=== PATIENT | female | born 1970 | race Caucasian/White ===

== ENCOUNTER 2016-02-26 08:13 | Day surgery (SDC) | payer BC, OTHER ==
[2016-02-14 11:09] VITALS: BMI 30.1
--- NOTE | 2016-02-25 14:32 | HP ---
DATE OF ADMISSION: Gabby Norris is a 45-year-old patient seen with progressive right knee pain. After having treatment options discussed, she elected to proceed with right knee arthroscopy. Consent was obtained. PAST MEDICAL HISTORY: Migraine headaches. PAST SURGICAL HISTORY: Left breast biopsy, cholecystectomy, hand surgery, left knee arthroscopy. Daily medications: 1. Depakote. 2. Topamax. ALLERGIES: CODEINE. SOCIAL HISTORY: Patient denies tobacco use. Physical evaluation of right knee: Range of motion is -1 to 120 degrees, mild intra-articular effusion present. Tenderness medial joint line. Positive medial Juan David's. There is crepitus along the medial and patellofemoral compartments with range of motion. Ligaments are stable. Hip rotation is without pain. Distal neurovascular exam is intact. Radiographs of the right knee revealed mild osteoarthritic changes. MRI of the right knee revealed medial and lateral meniscal tears. IMPRESSION: Internal derangement of right knee with medial and lateral meniscal tear. PLAN: Right knee arthroscopy with partial meniscectomy and debridement.
[~2016-02-26 08:13] MED LIST: DEXAMETHASONE SOD PHOSPHATE 10 MG/ML 1 ML VIAL IV ONE; FAMOTIDINE 20 MG/2 ML VIAL IV PRN; HYDROmorphone 1 MG/ML 1 ML SYRINGE IVP PRN; LACTATED RINGERS 1,000 ML IV SCH; LIDOCAINE 1% 20 ML VIAL (10MG/ML) FOR IV START INTRADERMA PRN; MIDAZOLAM 2 MG/2 ML VIAL IV PRN; ceFAZolin 2 GM in SODIUM CHLORIDE 0.9% 100 ML IVPB ONE
[2016-02-26] MEDS: ONDANSETRON 4 MG/2 ML VIAL IVP ONE ×2 (08:57→12:10)
[2016-02-26] MEDS ORDERED: PROPOFOL 10 MG/ML 20 ML VIAL IV ONE (09:15)
[2016-02-26] MEDS ORDERED: SODIUM CHLORIDE 0.9% 100 ML BAG IV ONE (09:15)
[2016-02-26] MEDS ORDERED: fentaNYL (PF) 50 MCG/ML 2 ML AMP ONE (09:15)
[2016-02-26] MEDS ORDERED: LIDOCAINE 1% INJ 10MG/ML (20 ML MDV) ONE (09:15)
[2016-02-26] MEDS ORDERED: ceFAZolin 1,000 MG VIAL ONE (09:15)
[2016-02-26] MEDS ORDERED: MIDAZOLAM 2 MG/2 ML VIAL ONE (09:15)
[2016-02-26] MEDS ORDERED: BUPIVACAIN-EPI 0.25%-1:200,000 30 ML VIAL INTRAARTIC ONE ×2 (09:33→09:52)
[2016-02-26 10:12] VITALS: TEMP 96.8
--- NOTE | 2016-02-26 10:12 | P.OP ---
Date of Procedure: 02/26/16 Preoperative Diagnosis: Internal derangement right knee Postoperative Diagnosis: 1. Tear medial and lateral meniscus right knee 2. Grade 2/3 chondromalacia medial femoral condyle right knee 3. Reactive synovitis medial and suprapatellar compartments right knee Procedure(s) Performed: 1. Arthroscopic partial medial and lateral meniscectomy right knee 2. Arthroscopic chondroplasty medial femoral condyle right knee 3. Arthroscopic partial synovectomy medial and suprapatellar compartments right knee Anesthesia: GETA Surgeon: Jack Santacruz Estimated Blood Loss (ml): 50 Pathology: none sent Condition: stable Disposition: PACU Indications for Procedure: 45-year-old patient seen with progressive right knee pain. After and treatment options discussed, she elected to proceed with right knee arthroscopy. Consent regarding procedure was obtained. Description of Procedure: Patient was taken to the operative suite. Patient underwent a general anesthetic by the department of anesthesia. Patient was given preoperative antibiotics. The right lower extremity was placed in a well-padded arthroscopic leg roldan. The right leg was prepped and draped in the normal sterile orthopedic fashion. A lateral parapatellar and suprapatellar incision was made. Trochars were inserted. Arthroscopy was initiated. Suprapatellar pouch revealed diffuse thick synovitis. The patellofemoral joint appeared to articulate congruently with grade 1 chondromalacia changes. The scope was guided into the medial gutter. No loose bodies or plica identified The scope was then guided into the medial compartment. A medial parapatellar incision was made. Trocar inserted followed by probe. There was a tear of the posterior horn and midbody medial meniscus. There were grade 2/3 chondromalacia changes of the medial femoral condyle with some osteochondral tears present. There were grade 1 chondromalacia changes of the medial tibial plateau. There was some reactive synovitis anteriorly. There were no loose bodies. A partial medial meniscectomy was performed down to stable tissue. I performed a chondroplasty of the medial femoral condyle down to stable tissue as well as a partial synovectomy. The residual meniscus was probed and found to be stable. The residual osteochondral surface medial femoral condyle was stable. Scope and probe were then guided into the intercondylar notch. Cruciates were identified, probed and found to be stable. The scope and probe were then guided into lateral compartment. There was a radial tear involving the posterior horn as well as midbody lateral meniscus. Mild grade 1 chondromalacia changes were present with no osteochondral tears. No reactive synovitis or loose body. A partial lateral meniscectomy was performed on a stable tissue. The residual meniscus was probed and found to be stable. The probe was removed. The scope was in guided back into the suprapatellar compartment. I introduced a motorized shaver into the suprapatellar compartment. I debrided piecemeal fragments of meniscus I encountered. I performed a partial synovectomy. Shaver was removed. I took one more look around the entire knee, no residual debris. Instruments were now removed from the joint. The joint was infiltrated with .25% Marcaine. Steri-Strips were applied to the portal sites. Sterile dressings were applied. The patient was placed into a MARLEN hose. No tourniquet was utilized. The patient was awakened, transferred to a bed and taken to recovery stable satisfactory condition.
[2016-02-26] MEDS ORDERED: HYDROmorphone 1 MG/ML 1 ML SYRINGE IVP ONE ×4 (10:15→10:28)
[2016-02-26] MEDS ORDERED: LACTATED RINGERS 1,000 ML IV ONE (10:30)
[2016-02-26 11:18] VITALS: RESP 16
[2016-02-26 11:53] VITALS: PULSE 92
[2016-02-26 12:11] VITALS: BP 134/93
== END 2016-02-26 12:52 | disposition home or self-care (01) ==
LOC: OR 08:13
PROVIDERS: ATTEND Orthopaedic Surgery
DX: S83.281A Other tear of lateral meniscus, current injury, right knee, initial encounter (principal); S83.241A Other tear of medial meniscus, current injury, right knee, initial encounter; M65.9 Synovitis and tenosynovitis, unspecified; M94.261 Chondromalacia, right knee; X58.XXXA Exposure to other specified factors, initial encounter; G43.909 Migraine, unspecified, not intractable, without status migrainosus; Z88.5 Allergy status to narcotic agent; Z88.6 Allergy status to analgesic agent; Z79.899 Other long term (current) drug therapy; Z79.1 Long term (current) use of non-steroidal anti-inflammatories (NSAID)
CPT/HCPCS: 29880; 81025; J2250; J1100; J2405; J0690; J2001; J3010; J1170; J2704

== ENCOUNTER → 2016-07-15 | Outpatient (CLI) | payer OTHER ==
--- NOTE | 2016-07-15 14:08 | MR ---
MR brain without contrast HISTORY: Chronic headaches Multiplanar multisequence imaging through the brain No comparisons There is a mass present causing mass effect in the lingula slightly to the right of midline measuring approximately 16 x 13 x 11 mm showing increased signal on T2-weighted sequences, intermediate signal on T1-weighted images. There is no restricted diffusion present. There is no hemorrhage or hydrocephalus. There are normal v ascular flow voids. Corpus callosum, pituitary, cerebellopontine angles are within normal limits. The re are some scattered hyperintensities on inversion recovery and T2-weighted sequences within the kenn p white matter, approximately 2 or 3 punctate lesions which are nonspecific. Inflammatory changes pre sent within the mastoid air cells. 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 Recommend con trast enhanced brain MRI with special attention to the brainstem with brainstem protocol. Additional findings above. Report relayed to the office of to Alicia at 1410h at the time of inte rpretation
== END | disposition home or self-care (01) ==
LOC: RADMRIMAIN 08:33
PROVIDERS: ATTEND Family Medicine
DX: R51 Headache (principal); R22.0 Localized swelling, mass and lump, head
CPT/HCPCS: 70551

== ENCOUNTER → 2016-07-17 | Outpatient (CLI) | payer OTHER ==
--- NOTE | 2016-07-17 09:40 | MR ---
EXAMINATION TYPE: MR brain w con DATE OF EXAM: 07/17/2016 9:08 AM COMPARISON: NONE HISTORY: Other abnormal findings on diagnostic imagin CONTRAST: Standard multiplanar, multisequence MRI departmental protocol utilizing 15 mL intravenous MultiHance gadolinium contrast. FINDINGS: Persistent the deformity of the medulla without evidence of significant enhancement. Neopla sm in the differential diagnosis. Previous infarct is not excluded. Linear area of enhancement involving the right parietal white matter compatible tiny venous angioma. Ventricular system midline without displacement. Prominent fluid-filled structure posterior to the th ird ventricle measuring 1.5 cm likely represents small arachnoid cyst. 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 Vague enhancement in the right inferior temp oral lobe likely vascular. No suspicious enhancement. IMPRESSION: Area of concern involving the medulla demonstrates no significant enhancement. There does appear to b e persistent deformity of the anterior right margin of the medulla. Neoplasm including low-grade glio ma in the differential. Previous infarct not excluded.
== END | disposition home or self-care (01) ==
LOC: RADMRIMAIN 08:36
PROVIDERS: ATTEND Family Medicine
DX: R90.89 Other abnormal findings on diagnostic imaging of central nervous system (principal)
CPT/HCPCS: 70552; A9577

== ENCOUNTER → 2017-01-08 | Outpatient (CLI) | payer OTHER ==
--- NOTE | 2017-01-12 07:55 | MM ---
Reason for exam: screening (asymptomatic). Last mammogram was performed 1 year and 4 months ago. History: Benign left mammotome panel of the left breast, June 16, 2013. Benign excisional biopsy of the right breast, 1999. Physical Findings: A clinical breast exam by your physician is recommended on an annual basis and results should be correlated with mammographic findings. MG 3D Screening Mammo W/Cad Bilateral CC and MLO view(s) were taken. Prior study comparison: August 28, 2015, right breast MG 3d diag mammo w/cad RT. March 12, 2015, bilateral MG 3d diag mammo w/cad CAROLYN. There are scattered fibroglandular densities. Previous mammotome biopsy in the left breast. There is chronic nodularity in the right breast. Stable accessory tissue superior posterior right breast. ASSESSMENT: Benign, BI-RAD 2 RECOMMENDATION: Routine screening mammogram of both breasts in 1 year. Manage on a clinical basis with regard to right breast pain.
== END | disposition home or self-care (01) ==
LOC: RADMAMWWP 15:35
PROVIDERS: ATTEND Family Medicine
DX: Z12.31 Encounter for screening mammogram for malignant neoplasm of breast (principal)
CPT/HCPCS: 77063; G0202

== ENCOUNTER → 2017-04-26 | Outpatient (CLI) | payer OTHER ==
--- NOTE | 2017-04-26 14:11 | XR ---
EXAMINATION TYPE: XR lumbosacral spine min 4V DATE OF EXAM: 04/26/2017 CLINICAL HISTORY: Chronic low back pain TECHNIQUE: Frontal, lateral, and oblique images of the lumbar spine are obtained. COMPARISON: None FINDINGS: There are hypoplastic 12th ribs. There are 5 lumbar type vertebral bodies identified. Mild multilevel degenerative changes of the lumbar spine are seen as small anterior osteophytes at L1-L2 a nd L2-L3 and facet arthropathy at L4-L5 and L5-S1. The lumbar spine shows satisfactory alignment with out evidence of acute fracture or dislocation. Vertebral body heights and disk space heights are with in normal limits. The oblique images appear within normal limits with no radiographic neural forami nal narrowing. Cholecystectomy clips are seen within the right upper quadrant. IMPRESSION: 1. No acute fracture or dislocation is seen in the lumbar spine. 2. Mild degenerative disc disease of the lumbar spine with no radiographic evidence of neuroforaminal narrowing. MR of the lumbar spine could be performed if there is further evaluation for disc herniat ion, spinal canal stenosis or neural foraminal narrowing.
== END | disposition home or self-care (01) ==
LOC: RADXRMAIN 13:05
PROVIDERS: ATTEND Family Medicine
DX: M51.36 Other intervertebral disc degeneration, lumbar region (principal)
CPT/HCPCS: 72110

== ENCOUNTER → 2018-01-18 | Outpatient (CLI) | payer OTHER ==
--- NOTE | 2018-01-19 14:54 | MM ---
Reason for exam: screening (asymptomatic). Last mammogram was performed 1 year ago. History: Benign left mammotome panel of the left breast, June 16, 2013. Benign excisional biopsy of the right breast, 1999. Physical Findings: A clinical breast exam by your physician is recommended on an annual basis and results should be correlated with mammographic findings. MG Screening Mammo w CAD Bilateral CC and MLO view(s) were taken. Prior study comparison: January 08, 2017, bilateral MG 3d screening mammo w/cad. August 28, 2015, right breast MG 3d diag mammo w/cad RT. There are scattered fibroglandular densities. There is no discrete abnormality. No significant changes when compared with prior studies. ASSESSMENT: Negative, BI-RAD 1 RECOMMENDATION: Routine screening mammogram of both breasts in 1 year.
== END | disposition home or self-care (01) ==
LOC: RADMAMWWP 07:13
PROVIDERS: ATTEND Family Medicine
DX: Z12.31 Encounter for screening mammogram for malignant neoplasm of breast (principal)
CPT/HCPCS: 77067

== ENCOUNTER → 2019-02-20 | Outpatient (CLI) | payer OTHER ==
[2019-02-20 17:17] LABS: HCT 41.9 % (34.0-46.0); HGB 13.6 gm/dL (11.4-16.0); MCH 29.8 pg (25.0-35.0); MCHC 32.5 g/dL (31.0-37.0); MCV 91.7 fL (80.0-100.0); Mean Platelet Volume 8.5; Platelet Count 254 k/uL (150-450); RBC 4.56 m/uL (3.80-5.40); RDW 12.5 % (11.5-15.5); WBC 7.3 k/uL (3.8-10.6)
[2019-02-21 00:34] LABS: African American GFR (CKD) 117.1 (60.0-200.0); Anion Gap 13.1 mmol/L (4.00-12.00); Calcium 9.4 mg/dL (8.7-10.3); Carbon Dioxide 22.9 mmol/L (21.6-31.8); Potassium 4.1 mmol/L (3.5-5.5)
== END | disposition home or self-care (01) ==
LOC: LABWHC1 16:19
PROVIDERS: ATTEND Nuclear Medicine Nuclear Cardiology
DX: Z01.810 Encounter for preprocedural cardiovascular examination (principal); I25.10 Atherosclerotic heart disease of native coronary artery without angina pectoris; R07.89 Other chest pain
CPT/HCPCS: 36415; 80048; 85027

== ENCOUNTER → 2019-08-15 | Outpatient (CLI) | payer MEDICAID, OTHER ==
--- NOTE | 2019-08-17 09:38 | MM ---
Reason for exam: screening (asymptomatic). Last mammogram was performed 1 year and 7 months ago. History: Patient is postmenopausal. Benign left mammotome panel of the left breast, June 16, 2013. Benign excisional biopsy of the right breast, 1999. Took hormonal contraceptives for 1 year. Physical Findings: A clinical breast exam by your physician is recommended on an annual basis and results should be correlated with mammographic findings. MG 3D Screening Mammo W/Cad Bilateral CC and MLO view(s) were taken. Prior study comparison: January 18, 2018, bilateral MG screening mammo w CAD. January 08, 2017, bilateral MG 3d screening mammo w/cad. There are scattered fibroglandular densities. Previous mammotome biopsy in the left breast. There is chronic nodularity in the right breast. Global asymmetry right upper outer quadrant is unchanged. No significant changes when compared with prior studies. ASSESSMENT: Benign, BI-RAD 2 RECOMMENDATION: Routine screening mammogram of both breasts in 1 year.
== END | disposition home or self-care (01) ==
LOC: RADMAMWWP 11:34
PROVIDERS: ATTEND Obstetrics & Gynecology
DX: Z12.31 Encounter for screening mammogram for malignant neoplasm of breast (principal)
CPT/HCPCS: 77063; 77067

== ENCOUNTER 2020-08-10 22:28 | Inpatient (IN) | payer MEDICAID ==
[2020-08-10] MEDS ORDERED: ONDANSETRON 4 MG/2 ML VIAL IVP STA (23:11)
[2020-08-10] MEDS ORDERED: SODIUM CHLORIDE 0.9% 1,000 ML IV STA (23:11)
[2020-08-10] MEDS ORDERED: MORPHINE SULFATE 2 MG/ML SYRINGE IVP STA (23:11)
[2020-08-10 23:33] LABS: Basophils % (A) 0 %; Eosinophils # (A) 0.1 k/uL (0-0.7); Eosinophils % (A) 1 %; HCT 39.3 % (34.0-46.0); HGB 13.6 gm/dL (11.4-16.0); Lymphocytes # (A) 1.2 k/uL (1.0-4.8); Lymphocytes % (A) 11 %; MCHC 34.6 g/dL (31.0-37.0); MCV 86.7 fL (80.0-100.0); Mean Platelet Volume 7.6; Monocytes # (A) 0.4 k/uL (0-1.0); Monocytes % (A) 4 %; Neutrophils # (A) 8.9 k/uL (1.3-7.7); Neutrophils % (A) 83 %; Platelet Count 336 k/uL (150-450); RBC 4.53 m/uL (3.80-5.40); RDW 12.5 % (11.5-15.5); WBC 10.8 k/uL (3.8-10.6)
--- NOTE | 2020-08-11 00:03 | XR ---
EXAMINATION TYPE: XR chest 2V DATE OF EXAM: 08/10/2020 COMPARISON: NONE HISTORY: Chest pain TECHNIQUE: 2 views FINDINGS: Heart and mediastinum are normal. Lungs are clear. Diaphragm is normal. There are chest carlitos ds. Costophrenic angles are clear. IMPRESSION: Normal chest.
--- NOTE | 2020-08-11 00:25 | ED ---
General Adult HPI - General Chief complaint: Abdominal Pain Stated complaint: Heart palpitations, sent from Time Seen by Provider: 08/10/20 22:43 Source: patient Mode of arrival: ambulatory Limitations: no limitations - History of Present Illness Initial comments: 50 year-old male patient presents for evaluation of midepigastric abdominal pain and palpitations. Patient states symptoms have been present for the last week. States they are constant. She reports nausea and several episodes of vomiting throughout the day. States she is having pain in her mid upper back as well. Reports intermittent palpitations. Reports occasional shortness of breath. Denies personal cardiac history, but reports CAD in her mother. Has had cholecystectomy in the past. Patient denies any recent rash, fever, chills, cough, diarrhea, constipation, back pain, numbness, tingling, dizziness, weakness, hematuria, dysuria, urinary urgency, urinary frequency, headache, visual changes, or any other complaints. - Related Data Home Medications Medication Instructions Recorded Confirmed SUMAtriptan SUCCINATE [Imitrex] 100 mg PO DAILY PRN 07/05/15 02/26/16 Aspirin/Acetaminophen/Caffeine 1 each PO DAILY PRN 02/14/16 02/26/16 [Excedrin Migraine Caplet] Ibuprofen [Motrin] 800 mg PO Q6H PRN 02/14/16 02/26/16 Previous Rx's Medication Instructions Recorded Hydrocodone/Acetaminophen [Hulen 1 each PO Q6HR PRN #30 tab 02/26/16 5-325] Ibuprofen [Motrin] 800 mg PO Q6HR PRN #30 tab 02/26/16 Allergies Allergy/AdvReac Type Severity Reaction Status Date / Time codeine AdvReac Nausea & Verified 08/10/20 22:36 Vomiting tramadol AdvReac Nausea & Verified 08/10/20 22:36 Vomiting Review of Systems ROS Statement: Those systems with pertinent positive or pertinent negative responses have been documented in the HPI. ROS Other: All systems not noted in ROS Statement are negative. Past Medical History Past Medical History: Neurologic Disorder Additional Past Medical History / Comment(s): MIGRAINES History of Any Multi-Drug Resistant Organisms: None Reported Past Surgical History: Breast Surgery, Cholecystectomy, Orthopedic Surgery, Tubal Ligation Additional Past Surgical History / Comment(s): RT KNEE SCOPE. LT MIDDLE FINGER Sx. lumpectomy rt breast 1989 and from lt breast 2014-both benign Past Anesthesia/Blood Transfusion Reactions: No Reported Reaction Additional Past Anesthesia/Blood Transfusion Reaction / Comment(s): NO HX BLOOD TRANSFUSION, MOTHER HAD HX OF BLOOD TRANSFUSION Past Psychological History: No Psychological Hx Reported Smoking Status: Never smoker Past Alcohol Use History: None Reported Past Drug Use History: None Reported - Past Family History Father Family Medical History: COPD Mother Family Medical History: COPD, Diabetes Mellitus Additional Family Medical History / Comment(s): HEART SURG. General Exam Limitations: no limitations General appearance: alert, in no apparent distress, other (This is a well- developed, well-nourished adult female patient in no acute distress. Vital signs upon presentation are temperature 98.7F, pulse 97, respirations 18, blood pressure 143/97, pulse ox 99% on room air.) Eye exam: Present: normal appearance, PERRL, EOMI. Absent: scleral icterus, conjunctival injection, periorbital swelling ENT exam: Present: normal exam, normal oropharynx, mucous membranes moist Respiratory exam: Present: normal lung sounds bilaterally. Absent: respiratory distress, wheezes, rales, rhonchi, stridor Cardiovascular Exam: Present: regular rate, normal rhythm, normal heart sounds. Absent: systolic murmur, diastolic murmur, rubs, gallop, clicks GI/Abdominal exam: Present: soft, tenderness (Midepigastric), normal bowel sounds. Absent: distended, guarding, rebound, rigid Neurological exam: Present: alert, oriented X3, CN II-XII intact Psychiatric exam: Present: normal affect, normal mood Skin exam: Present: warm, dry, intact, normal color. Absent: rash Course Vital Signs 08/10/20 22:32 Temperature 98.7 F Pulse Rate 97 Respiratory 18 Rate Blood Pressure 143/97 O2 Sat by Pulse 99 Oximetry EKG Findings - EKG Comments: EKG Findings:: EKG obtained at 2304 shows normal sinus rhythm with a ventricular rate of 72, LA interval 138, QRS duration 74, QT 374, QTC 409. No evidence of ST elevation or depression. Medical Decision Making - Medical Decision Making 50-year-old female patient presents to the emergency department today for evaluation of chest pain and palpitations. Physical examination did reveal some midepigastric discomfort. Shows report vomiting, sweats, and palpitations with this. Labs reviewed and are unremarkable. Troponin negative. EKG showed sinus rhythm with no ST elevation or depression. Upon reevaluation patient still reports some discomfort. She'll be admitted to the hospital for serial troponins and further evaluation by cardiology. She is given aspirin. She is agreeable with this plan. My attending is Dr. Andrews. - Lab Data Result diagrams: 08/10/20 23:26 08/10/20 23:26 Lab Results 08/10/20 08/10/20 08/10/20 Range/Units 23:26 23:26 23:26 WBC 10.8 H (3.8-10.6) k/uL RBC 4.53 (3.80-5.40) m/uL Hgb 13.6 (11.4-16.0) gm/dL Hct 39.3 (34.0-46.0) % MCV 86.7 (80.0-100.0) fL MCH 30.0 (25.0-35.0) pg MCHC 34.6 (31.0-37.0) g/dL RDW 12.5 (11.5-15.5) % Plt Count 336 (150-450) k/uL MPV 7.6 Neutrophils % 83 % Lymphocytes % 11 % Monocytes % 4 % Eosinophils % 1 % Basophils % 0 % Neutrophils # 8.9 H (1.3-7.7) k/uL Lymphocytes # 1.2 (1.0-4.8) k/uL Monocytes # 0.4 (0-1.0) k/uL Eosinophils # 0.1 (0-0.7) k/uL Basophils # 0.0 (0-0.2) k/uL Sodium 142 (137-145) mmol/L Potassium 3.5 (3.5-5.1) mmol/L Chloride 100 (98-107) mmol/L Carbon Dioxide 30 (22-30) mmol/L Anion Gap 12 mmol/L BUN 13 (7-17) mg/dL Creatinine 0.64 (0.52-1.04) mg/dL Est GFR (CKD-EPI)AfAm >90 (>60 ml/min/1.73 sqM) Est GFR (CKD-EPI)NonAf >90 (>60 ml/min/1.73 sqM) Glucose 114 H (74-99) mg/dL Calcium 9.3 (8.4-10.2) mg/dL Total Bilirubin 0.3 (0.2-1.3) mg/dL AST 17 (14-36) U/L ALT 7 (4-34) U/L Alkaline Phosphatase 136 H (38-126) U/L Troponin I <0.012 (0.000-0.034) ng/mL Total Protein 7.2 (6.3-8.2) g/dL Albumin 4.4 (3.5-5.0) g/dL Lipase 74 (23-300) U/L - Radiology Data Radiology results: report reviewed, image reviewed 2 views of the chest are obtained. Report was reviewed in its entirety. Impression by Dr. Calloway shows ultrasound. Disposition Clinical Impression: Chest pain, Palpitations Disposition: ADMITTED IP TO THIS [facility] Condition: Serious Referrals: Phylicia Stewart MD [Primary Care Provider] - 1-2 days Decision to Admit Reason: Admit from EC Decision Date: 08/11/20 Decision Time: 01:44
[2020-08-11 01:21] LABS: ALT 7 U/L (4-34); AST 17 U/L (14-36); African American GFR (CKD) >90 (>60 ml/min/1.73 sqM); Albumin 4.4 g/dL (3.5-5.0); Alkaline Phosphatase 136 U/L (38-126); Anion Gap 12 mmol/L; Blood Urea Nitrogen 13 mg/dL (7-17); Calcium 9.3 mg/dL (8.4-10.2); Carbon Dioxide 30 mmol/L (22-30); Chloride 100 mmol/L (98-107); Glucose 114 mg/dL (74-99); Lipase 74 U/L (23-300); Non-African American GFR(CKD) >90 (>60 ml/min/1.73 sqM); Potassium 3.5 mmol/L (3.5-5.1); Sodium 142 mmol/L (137-145); Total Bilirubin 0.3 mg/dL (0.2-1.3); Total Protein 7.2 g/dL (6.3-8.2)
[2020-08-11] MEDS ORDERED: NALOXONE 0.4 MG/ML 1 ML VIAL IV PRN (01:41)
[2020-08-11] MEDS ORDERED: ONDANSETRON 4 MG/2 ML VIAL IVP PRN (01:41)
[2020-08-11] MEDS ORDERED: ASPIRIN 81 MG PO STA (01:43)
[2020-08-11] MEDS ORDERED: MORPHINE SULFATE 4 MG/ML SYRINGE IVP PRN (01:43)
[2020-08-11] MEDS: ASPIRIN 325 MG TAB PO SCH ×2 (02:10→23:40)
[2020-08-11 02:39] LABS: Appearance,Urine Cloudy (Clear); Bilirubin,Urine Negative (Negative); Blood,Urine Negative (Negative); Color,Urine Yellow; Glucose,Urine (UA) Negative (Negative); Ketones,Urine 2+ (Negative); Leukocyte Esterase,Urine Negative (Negative); Mucus,Urine Rare /hpf; Nitrite,Urine Negative (Negative); Protein,Urine Trace (Negative); RBC,Urine 5 /hpf (0-5); Specific Gravity,Urine 1.019 (1.001-1.035); Squamous Epithelial Cell,Urine 2 /hpf (0-4); Urobilinogen,Urine <2.0 mg/dL (<2.0); WBC,Urine 1 /hpf (0-5)
[2020-08-11] MEDS ORDERED: POTASSIUM CHLORIDE ER 20 MEQ TAB.ER PO STA (09:32)
[2020-08-11] MEDS: ASPIRIN 81 MG PO SCH (10:02)
[2020-08-11] MEDS: ASPIRIN-ACET-CAFF 250-250-65MG 1 EACH TAB PO PRN (11:22)
--- NOTE | 2020-08-11 12:41 | P.CRDCN ---
History of Present Illness Consult date: 08/11/20 History of present illness: HISTORY OF PRESENT ILLNESS: This is a 50-year-old female with a past medical history significant for hypertension and migraines. Patient does not follow with a botany laboratory assistant. We have been asked to see the patient in consultation for chest pain. Patient examined at the bedside. Patient states over the last 3 days she has been nauseous and has had multiple episodes of vomiting. She reports a burning sensation in her chest but states she has not had any significant chest pain. She reports feeling patients. She reports feeling diaphoretic but has not had a fever at home. She denies feeling short of breath. She denies feeling dizzy or lightheaded. Patient states she used to see a botany laboratory assistant a few years ago in [place] but does not remember his name. She states she had a stress test performed at that time which was normal. She reports her mom has a history of a pacemaker insertion. Her dad had a heart attack but she is unsure of what age. At the time of examination the patient does not feel her heart racing. She denies shortness of breath. She denies any chest pain or pressure. EKG reveals sinus mechanism with nonspecific ST-T wave changes Chest xray negative for acute process Laboratory data: WBC 10.8. Hemoglobin 13.6. Platelet count 336. Sodium 142. Potassium 3.5. BUN 13. Creatinine 0.64. Troponin negative 3. Current home cardiac medications include propanolol 60 mg daily REVIEW OF SYSTEMS: At the time of my exam: CONSTITUTIONAL: Denies fever or chills. HEENT: Denies blurred vision, vision changes, or eye pain. Denies hemoptysis CARDIOVASCULAR: Denies chest pain. Denies orthopnea. Denies PND. Denies palpitations RESPIRATORY: Denies shortness of breath. GASTROINTESTINAL: Denies abdominal pain. Denies nausea or vomiting. HEMATOLOGIC: Denies bleeding disorders. GENITOURINARY: Denies any blood in urine. SKIN: Denies pruitis. Denies rash. PHYSICAL EXAM: VITAL SIGNS: Reviewed. GENERAL: Well-developed in no acute distress. HEENT: Head is normocephalic. Pupils are equal, round. Sclerae anicteric. Mucous membranes of the mouth are moist. Neck supple. No JVD or thyromegaly LUNGS: Respirations even and unlabored. Lungs essentially clear to auscultation bilaterally. HEART: Regular rate and rhythm. S1 and S2 heard. ABDOMEN: Soft. Nondistended. Nontender. EXTREMITIES: Normal range of motion. No clubbing or cyanosis. Peripheral pulses intact. No lower extremity edema NEUROLOGIC: Awake and alert. Oriented x 3. ASSESSMENT: Nausea and vomiting 3 days Chest pain, atypical Palpitations History of hypertension History of migraines Hypokalemia PLAN: An acute coronary event has been ruled out Obtain 2-D echo to assess cardiac structure and function Resume home dose of propanolol Continue aspirin 81 mg daily Obtain lipid panel Replace potassium Continue telemetry monitoring to assess for any arrhythmias Patient to undergo stress echocardiogram tomorrow to assess for reversible ischemia Further recommendations for inpatient course Nurse practitioner note has been reviewed by physician. Signing provider agrees with the documented findings, assessment, and plan of care. Past Medical History Past Medical History: Neurologic Disorder Additional Past Medical History / Comment(s): MIGRAINES History of Any Multi-Drug Resistant Organisms: None Reported Past Surgical History: Breast Surgery, Cholecystectomy, Orthopedic Surgery, Tubal Ligation Additional Past Surgical History / Comment(s): RT KNEE SCOPE. LT MIDDLE FINGER Sx. lumpectomy rt breast 1989 and from lt breast 2013-both benign Past Anesthesia/Blood Transfusion Reactions: No Reported Reaction Additional Past Anesthesia/Blood Transfusion Reaction / Comment(s): NO HX BLOOD TRANSFUSION, MOTHER HAD HX OF BLOOD TRANSFUSION Past Psychological History: No Psychological Hx Reported Smoking Status: Never smoker Past Alcohol Use History: None Reported Past Drug Use History: None Reported - Past Family History Father Family Medical History: COPD Mother Family Medical History: COPD, Diabetes Mellitus Additional Family Medical History / Comment(s): HEART SURG. Medications and Allergies Home Medications Medication Instructions Recorded Confirmed Type Aspirin/Acetaminophen/Caffeine 2 tab PO TID PRN 02/14/16 08/11/20 History [Excedrin Migraine Caplet] Butalb/APAP/Caff 50-325-40Mg 1 tab PO BID PRN 08/11/20 08/11/20 History [Fioricet 50-325-40] Ergocalciferol (Vitamin D2) 1,250 mcg PO MO 08/11/20 08/11/20 History [Drisdol (50,000 Iu)] Propranolol HCl [Propranolol HCl 60 mg PO DAILY 08/11/20 08/11/20 History ER] Allergies Allergy/AdvReac Type Severity Reaction Status Date / Time codeine AdvReac Nausea & Verified 08/11/20 08:56 Vomiting tramadol AdvReac Nausea & Verified 08/11/20 08:56 Vomiting Physical Exam Vitals: Vital Signs Temp Pulse Pulse Resp BP BP Pulse Ox 08/11/20 08:00 79 18 08/11/20 07:00 98.5 F 79 18 106/70 97 08/11/20 05:03 98.5 F 71 18 126/77 95 08/11/20 02:04 85 16 146/93 100 08/10/20 22:32 98.7 F 97 18 143/97 99 Intake and Output 08/10/20 08/11/20 08/11/20 22:59 06:59 14:59 Other: Voiding Method Toilet # Voids 0 Weight 72.575 kg 72.575 kg Results 08/10/20 23:26 08/10/20 23:26 Cardiac Enzymes 08/10/20 08/10/20 08/11/20 Range/Units 23:26 23:26 03:42 AST 17 (14-36) U/L Troponin I <0.012 <0.012 (0.000-0.034) ng/mL 08/11/20 Range/Units 06:37 AST (14-36) U/L Troponin I <0.012 (0.000-0.034) ng/mL CBC 08/10/20 Range/Units 23:26 WBC 10.8 H (3.8-10.6) k/uL RBC 4.53 (3.80-5.40) m/uL Hgb 13.6 (11.4-16.0) gm/dL Hct 39.3 (34.0-46.0) % Plt Count 336 (150-450) k/uL Comprehensive Metabolic Panel 08/10/20 Range/Units 23:26 Sodium 142 (137-145) mmol/L Potassium 3.5 (3.5-5.1) mmol/L Chloride 100 (98-107) mmol/L Carbon Dioxide 30 (22-30) mmol/L BUN 13 (7-17) mg/dL Creatinine 0.64 (0.52-1.04) mg/dL Glucose 114 H (74-99) mg/dL Calcium 9.3 (8.4-10.2) mg/dL AST 17 (14-36) U/L ALT 7 (4-34) U/L Alkaline Phosphatase 136 H (38-126) U/L Total Protein 7.2 (6.3-8.2) g/dL Albumin 4.4 (3.5-5.0) g/dL Current Medications Generic Name Dose Route Start Last Admin Trade Name Freq PRN Reason Stop Dose Admin Acetaminophen/Aspirin/Caffeine 2 each 08/11/20 10:42 08/11/20 11:22 [id number] 1 Each Tab PO 2 each TID PRN Administration Migraine Headache Acetaminophen/Butalbital/Caffeine 1 each 08/11/20 10:42 Butalb/Apap/Caff 50-325-40mg Tab PO BID PRN Migraine Headache Aspirin 81 mg 08/11/20 09:00 08/11/20 10:02 Aspirin 81 Mg PO 81 mg DAILY COLBY Administration Ergocalciferol 1,250 mcg 08/12/20 09:00 Ergocalciferol 1,250 Mcg (50,000 Iu) Capsule PO MO COLBY Morphine Sulfate 4 mg 08/11/20 01:43 Morphine Sulfate 4 Mg/Ml Syringe IVP Q4HR PRN Pain Naloxone HCl 0.2 mg 08/11/20 01:41 Naloxone 0.4 Mg/Ml 1 Ml Vial IV Q2M PRN Opioid Reversal Ondansetron HCl 4 mg 08/11/20 01:41 Ondansetron 4 Mg/2 Ml Vial IVP Q8HR PRN Nausea And Vomiting Propranolol HCl 60 mg 08/12/20 09:00 Propranolol La 60 Mg Cap.Sa.24h PO DAILY COLBY Intake and Output 08/10/20 08/11/20 08/11/20 22:59 06:59 14:59 Other: Voiding Method Toilet # Voids 0 Weight 72.575 kg 72.575 kg 08/10/20 23:26 08/10/20 23:26
[2020-08-11] MEDS ORDERED: TEMAZEPAM 15 MG CAP PO PRN (14:36)
[2020-08-11] MEDS ORDERED: ALPRAZolam 0.25 MG TAB PO PRN (14:36)
--- NOTE | 2020-08-11 15:20 | HP ---
HISTORY AND PHYSICAL DATE OF SERVICE: 08/11/2020 CHIEF COMPLAINTS: Heart palpitations, chest pain, nausea, vomiting. HISTORY OF PRESENT ILLNESS: This is a 50-year-old woman with a past medical history of multiple medical issues including history of migraines, history of breast surgery, cholecystectomy, history of DJD, history of left knee scope, being followed by Dr. Phylicia Stewart in the outpatient setting. She apparently had a cloth hand previously. Patient also had a heart attack. The patient also had previously. The patient is complaining of on and off chest pains in the anterior part of the chest, sharp and heavy in character. The patient also has epigastric pain. Patient also had some acid reflux also according to her. There is no history of fever, rigors, chills. No headache, loss of consciousness, seizures. PAST MEDICAL HISTORY: Of cholecystectomy, history of DJD, tubal ligation, migraine, history of lumpectomy, breast. MEDICATIONS: Prior to admission include propranolol, vitamin D2, Fioricet, Excedrin. ALLERGIES: CODEINE AND TRAMADOL FAMILY HISTORY: History of COPD, diabetes mellitus, heart surgery. SOCIAL HISTORY: No history of smoking. No alcohol intake. REVIEW OF SYSTEMS: ENT: No diminished vision or hearing. CARDIOVASCULAR: As mentioned earlier. RESPIRATORY: As mentioned earlier. GI: As mentioned earlier. : No dysuria. NERVOUS SYSTEM: No numbness or weakness. ALLERGY/IMMUNOLOGY: No asthma or hayfever. MUSCULOSKELETAL: As mentioned earlier. HEMATOLOGY: No history of anemia. ENDOCRINE: No history of diabetes or hypothyroidism. CONSTITUTIONAL: As mentioned earlier. DERMATOLOGY: Negative. RHEUMATOLOGY: Negative. PSYCHIATRY: As mentioned earlier. PHYSICAL EXAMINATION: GENERAL: Patient is alert and oriented times three. VITAL SIGNS: Pulse 90, blood pressure 110/60, respirations 18, temperature 98.5, pulse ox 93% on room air. HEENT: Conjunctivae normal. NECK: No jugular venous distention. No carotid bruits. No lymph node enlargement. RESPIRATORY: Breath sounds diminished at the bases. No rhonchi, no crackles. HEART: S1 and S2, muffled. ABDOMEN: Soft, mild diffuse discomfort in the epigastrium. No tenderness. No masses palpable. No ascites. No hepatosplenomegaly. EXTREMITIES: No edema, no swelling. NERVOUS: Higher functions as mentioned earlier. Moves all four limbs. No focal motor or sensory deficits. LYMPHATICS: No lymph nodes palpable in the neck or axillae. SKIN: No rashes. JOINTS: No active deforming arthropathy. LABS: WBC 10.8, hemoglobin 13.6 sodium 142, potassium 3.5. ASSESSMENT: 1. Chest pain possible unstable angina. Myocardial infarction ruled out. 2. Possible gastroesophageal reflux disease. 3. History of nausea, vomiting, possible acute gastritis. 4. Increased WBC. 5. History of migraines. 6. History of cholecystectomy. 7. History of degenerative joint disease and left knee scope. 8. FULL CODE. RECOMMENDATIONS AND DISCUSSION: This is a 50-year-old woman who presented with multiple complex medical issues, we will monitor the patient closely. I would continue with symptomatic treatment for gastroesophageal reflux disease. Rule out myocardial infarction. Cardiology consultation and possible stress test. Monitor closely. Prognosis guarded because of multiple complex medical issues. Further recommendations to follow. MMODL / IJN: [id number] / MTDD
[2020-08-11] MEDS: PANTOPRAZOLE 40 MG/10 ML VIAL IVP SCH ×2 (15:57→21:10)
[2020-08-11 17:02] LABS: Chol/HDL Ratio 2.88; LDL Cholesterol,Calculated 60.8 mg/dL (0.0-131.0); VLDL Calculation 20.2 mg/dL (5.00-40.00)
[2020-08-11] MEDS: BUTALB/APAP/CAFF 50-325-40MG TAB PO PRN (21:10)
[2020-08-12] MEDS: ASPIRIN-ACET-CAFF 250-250-65MG 1 EACH TAB PO PRN (03:23)
[2020-08-12] MEDS: ASPIRIN 81 MG PO SCH (07:19)
[2020-08-12] MEDS: BUTALB/APAP/CAFF 50-325-40MG TAB PO PRN (07:19)
[2020-08-12] MEDS: PANTOPRAZOLE 40 MG/10 ML VIAL IVP SCH ×2 (07:21→19:43)
[2020-08-12] MEDS ORDERED: PROPRANOLOL LA 60 MG CAP.SA.24H PO SCH (09:00)
[2020-08-12] MEDS ORDERED: ERGOCALCIFEROL 1,250 MCG (50,000 IU) CAPSULE PO SCH (09:00)
[2020-08-12] MEDS ORDERED: SODIUM CHLORIDE 0.9% 500 ML 500 ML IV ONE (09:15)
[2020-08-12] MEDS ORDERED: AMINOPHYLLINE 500 MG/20 ML VIAL IV PRN (09:19)
[2020-08-12] MEDS ORDERED: REGADENOSON 0.4 MG/5 ML SYRINGE IV PRN (09:19)
[2020-08-12] MEDS ORDERED: CAFFEINE CITRATE 60 MG/3 ML VIAL IV PRN (09:19)
[2020-08-12 09:21] LABS: Basophils # (A) 0.05 X 10*3/uL (0.00-0.10); Basophils % (A) 0.6 %; Eosinophils # (A) 0.08 X 10*3/uL (0.04-0.35); HCT 33.8 % (37.2-46.3); HGB 11.1 g/dL (12.0-15.0); Lymphocytes # (A) 2.12 X 10*3/uL (0.90-5.00); Lymphocytes % (A) 26.2 %; MCH 29.8 pg (27.0-32.0); MCHC 32.8 g/dL (32.0-37.0); MCV 90.9 fL (80.0-97.0); Mean Platelet Volume 10.8 fL (9.5-12.2); Monocytes # (A) 0.54 X 10*3/uL (0.20-1.00); Monocytes % (A) 6.7 %; Neutrophils # (A) 5.27 X 10*3/uL (1.80-7.70); Neutrophils % (A) 65.3 %; Platelet Count 314 X 10*3/uL (140-440); RBC 3.72 X 10*6/uL (4.10-5.20); RDW 12.8 % (11.5-14.5); WBC 8.08 X 10*3/uL (4.50-10.00)
[2020-08-12 09:34] LABS: Anion Gap 7.7 mmol/L (4.00-12.00); Calcium 8.4 mg/dL (8.7-10.3); Carbon Dioxide 25.3 mmol/L (21.6-31.8); Non-African American GFR(CKD) 111.3 (60.0-200.0); Potassium 4.2 mmol/L (3.5-5.5)
[2020-08-12] MEDS: KETOROLAC 15 MG/ML 1 ML VIAL IVP SCH ×2 (09:51→17:39)
[2020-08-12] MEDS: SODIUM CHLORIDE 0.9% 1,000 ML IV SCH ×2 (09:54→15:18)
--- NOTE | 2020-08-12 10:58 | P.PN ---
Subjective Progress Note Date: 08/12/20 HISTORY OF PRESENT ILLNESS: This is a 50-year-old female with a past medical history significant for hypertension and migraines. Patient does not follow with a chair upholsterer. We have been asked to see the patient in consultation for chest pain. Patient examined at the bedside. Patient states over the last 3 days she has been nauseous and has had multiple episodes of vomiting. She reports a burning sensation in her chest but states she has not had any significant chest pain. She reports feeling patients. She reports feeling diaphoretic but has not had a fever at home. She denies feeling short of breath. She denies feeling dizzy or lightheaded. Patient states she used to see a chair upholsterer a few years ago in [place] but does not remember his name. She states she had a stress test performed at that time which was normal. She reports her mom has a history of a pacemaker insertion. Her dad had a heart attack but she is unsure of what age. At the time of examination the patient does not feel her heart racing. She denies shortness of breath. She denies any chest pain or pressure. EKG reveals sinus mechanism with nonspecific ST-T wave changes Chest xray negative for acute process Laboratory data: WBC 10.8. Hemoglobin 13.6. Platelet count 336. Sodium 142. Potassium 3.5. BUN 13. Creatinine 0.64. Troponin negative 3. Current home cardiac medications include propanolol 60 mg daily 08/12/2020 Patient examined this morning at the bedside. Patient reports a bad migraine this morning. She is tachycardic with ambulation into the 140-150s. She had an episode overnight where she became tachycardic for a brief period of time. Nursing reports that patient was also complaining of a bad migraine at that time. She denies chest pain or pressure. She denies shortness of breath. Denies further nausea or vomiting. She reports feeling dizzy and lightheaded this morning which she had not complained of yesterday. PHYSICAL EXAM: VITAL SIGNS: Reviewed. GENERAL: Well-developed in no acute distress. HEENT: Head is normocephalic. Pupils are equal, round. Sclerae anicteric. Mucous membranes of the mouth are moist. Neck supple. No JVD or thyromegaly LUNGS: Respirations even and unlabored. Lungs essentially clear to auscultation bilaterally. HEART: Regular rate and rhythm. S1 and S2 heard. ABDOMEN: Soft. Nondistended. Nontender. EXTREMITIES: Normal range of motion. No clubbing or cyanosis. Peripheral pulses intact. No lower extremity edema NEUROLOGIC: Awake and alert. Oriented x 3. ASSESSMENT: Nausea and vomiting 3 days Chest pain, atypical Palpitations History of hypertension History of migraines Hypokalemia Tachycardia PLAN: 2-D echo has been ordered. Await results Patient originally scheduled for stress echocardiogram today. Will change stress test to Lexiscan secondary to tachycardia with minimal ambulation Check d-dimer Check TSH Check orthostatic blood pressures 500 mL bolus and then continue maintenance fluids at 125 mL an hour Further recommendations for inpatient course Nurse practitioner note has been reviewed by physician. Signing provider agrees with the documented findings, assessment, and plan of care. Objective - Vital Signs Vital signs: Vital Signs Temp 98.4 F 08/12/20 06:59 Pulse 96 08/12/20 09:20 Resp 16 08/12/20 08:45 BP 139/90 08/12/20 09:20 Pulse Ox 99 08/12/20 09:13 Intake & Output 08/11/20 08/12/20 08/12/20 18:59 06:59 18:59 Other: Voiding Method Toilet Toilet Toilet # Voids 3 1 - Labs CBC & Chem 7: 08/12/20 04:40 08/12/20 04:40 Labs: Abnormal Lab Results - Last 24 Hours (Table) 08/12/20 08/12/20 Range/Units 04:40 04:40 RBC 3.72 L (4.10-5.20) X 10*6/uL Hgb 11.1 L (12.0-15.0) g/dL Hct 33.8 L (37.2-46.3) % BUN 34.0 H (9.0-27.0) mg/dL Creatinine 0.5 L (0.6-1.5) mg/dL BUN/Creatinine Ratio 68.00 H (12.00-20.00) Ratio Calcium 8.4 L (8.7-10.3) mg/dL
--- NOTE | 2020-08-12 12:06 | P.STRESS ---
- Stress Test Note Stress Test Results/Findings: Exam Performed: NM stress lexiscan cardiolite Exam Date: 08/12/20 Reason for Exam: CHEST PAIN, PALPITATIONS Height: 5 ft 3 in Weight: 72.57 kg Protocol: LEXISCAN Stage: NA Duration of Exercise: 5 MINUTES Resting Heart Rate: 90 Resting Blood Pressure: 97/87 Maximum Achieved Heart Rate: 119 Maximum Achieved Blood Pressure: 120/83 85% PMHR: 143 100% PMHR: 168 METS: NA Technologist Comment: Stress Test Results/Findings: At baseline EKG showed Normal sinus rhythm, normal axis, T-wave inversion in lead 3, no significant ST or T-wave abnormalities. Patient recieved IV infusion of Lexiscan 0.4mg and at peak infusion EKG showed no significant change from baseline. Conclusions: 1. Normal EKG response to Lexiscan infusion 2. Nuclear imaging to be reported separately.
--- NOTE | 2020-08-12 13:36 | NM ---
EXAMINATION TYPE: NM stress lexiscan cardiolite DATE OF EXAM: 08/12/2020 COMPARISON: NONE HISTORY: 50-year-old female chest pain and palpitations TECHNIQUE: After the intravenous administration of 10.2 mCi Tc 99m Sestamibi - Cardiolite resting SP ECT images acquired 60 minutes post injection. The patient received 0.4mg Lexiscan, 25.2 mCi Tc 99m Sestamibi - Stress images obtained [address] injection FINDINGS: Review of stress and rest SPECT images demonstrates some apparent reversibility along the mid to apic al anteroseptal wall that is not corroborated on Polar maps. Gated analysis shows estimated left vent ricular ejection fraction of 66 %. TID is increased at 1.30. IMPRESSION: Reversibility along the mid to apical anteroseptal wall is suspicious but not corroborated on the pineda ar maps. However, in addition, TID is increased and can be seen in the setting of multivessel, balanc ed inducible ischemia. Further evaluation recommended.
--- NOTE | 2020-08-12 14:02 | CT ---
EXAMINATION TYPE: CT chest angio for PE DATE OF EXAM: 08/12/2020 COMPARISON: Radiograph 08/10/2020 HISTORY: 50-year-old female Chest pain TECHNIQUE: Contiguous axial scanning of the chest performed with IV Contrast, patient injected with 5 2 mL of Isovue 370. Coronal/sagittal MIP reconstructions performed. CT DLP: 201.7 mGycm Automated exposure control for dose reduction was used. FINDINGS: Heart normal size without pericardial effusion. No flattening of the interventricular septum reflux o f contrast into the hepatic veins. Aorta normal caliber with conventional arch vessel branching anatomy. No thoracic lymphadenopathy by CT size criteria. Satisfactory opacification of the pulmonary arterial system. No evidence for pulmonary embolus. Mild diffuse bronchial wall thickening. No consolidation or pleural effusion. Cholecystectomy clips in the visualized upper abdomen. Questionable 1.7 cm nodularity superior to the left adrenal gland, axial image 118. This can be furth er evaluated with a follow-up contrast enhanced CT of the abdomen. Bones: No osseous destructive process. IMPRESSION: 1. MILD DIFFUSE BRONCHIAL WALL THICKENING CAN BE SEEN WITH BRONCHITIS OR CHRONIC ASTHMA. 2. NO EVIDENCE FOR PULMONARY EMBOLUS. 3. QUESTIONABLE 1.7 CM NODULE LOCATED ABOVE THE LEFT ADRENAL GLAND IN THE UPPER ABDOMEN. RECOMMEND FO LLOW-UP CT OF THE ABDOMEN AND PELVIS UTILIZING BOTH IV AND ORAL CONTRAST TO FURTHER EVALUATE.
[2020-08-12] MEDS ORDERED: ALPRAZolam 0.25 MG TAB PO PRN (14:40)
[2020-08-12] MEDS ORDERED: NITROGLYCERIN SL TABS 0.4 MG TAB SUBLINGUAL PRN (14:40)
[2020-08-12] MEDS ORDERED: ALPRAZolam 0.5 MG TAB PO PRN (14:40)
[2020-08-12] MEDS: PROPRANOLOL LA 80 MG CAP.SA.24H PO SCH (15:19)
--- NOTE | 2020-08-12 16:12 | PN ---
PROGRESS NOTE DATE OF SERVICE: 08/12/2025 INTERVAL HISTORY: This 50-year-old woman who was admitted with palpitations, chest pain, nausea, vomiting, multiple symptomatology is being closely monitored at this time. The stress test was borderline positive. The patient also has some diarrhea. The patient also had some tachycardia and Cardiology evaluate the patient. CTA of the chest was negative for pulmonary embolism. Nodules were noted. Otherwise cardiology is planning cardiac cath tomorrow. COVID-19 is negative. PAST MEDICAL HISTORY: Reviewed. REVIEW OF SYSTEMS: CARDIOVASCULAR: As mentioned earlier. RESPIRATORY: As mentioned earlier. GI: As mentioned earlier. : No dysuria. NERVOUS SYSTEM: No numbness or weakness. CURRENT MEDICATIONS: Excedrin, Fioricet, Xanax, aspirin, Lipitor. Doses and medications reviewed. PHYSICAL EXAMINATION: GENERAL: Patient is alert and oriented times three. VITAL SIGNS: Pulse 122, blood pressure 101/93, respirations 16, temperature 98.1, pulse ox 100% on room air. HEENT: Conjunctivae normal. Oral mucosa moist. NECK: No jugular venous distention. No carotid bruits. RESPIRATORY: Breath sounds diminished at the bases. A few scattered rhonchi. HEART: S1 and S2, muffled. Tachycardia. ABDOMEN: Soft, no tenderness. No masses palpable. EXTREMITIES: No edema, no swelling. NERVOUS: No focal deficits. LABORATORY DATA: WBC 8.2, hemoglobin 11.1. TSH is 0.77. ASSESSMENT: 1. Chest pain possible unstable angina. Myocardial infarction ruled out. 2. Abnormal stress test, for cardiac cath. 3. Sinus tachycardia, rule out cardiac arrhythmia. 4. Possible gastroesophageal reflux disease. 5. Possible acute gastroenteritis. 6. Rule out lower GI bleed. 7. Increased WBC. 8. History of migraine. 9. History of cholecystectomy. 10.History of degenerative joint disease and left knee scope. 11.FULL CODE. RECOMMENDATION AND DISCUSSION: In this 50-year-old woman who presented with multiple complex medical issues, we will monitor the patient closely. Continue the current medications, continue symptomatic treatment. Cardiac cath per Cardiology. Otherwise stool C diff. A 2D echo with Doppler. Overall prognosis is extremely guarded because of multiple complex abnormalities as described above, however, COVID-19 is negative at this time. CTA chest was also noted. Further recommendations to follow. MMODL / IJN: [id number] /
[2020-08-12] MEDS ORDERED: SODIUM CHLORIDE 0.9% 1,000 ML in EMPTY BAG 1 BAG IV ONE (23:00)
[2020-08-13] MEDS: KETOROLAC 15 MG/ML 1 ML VIAL IVP SCH ×3 (00:46→12:39)
[2020-08-13] MEDS: SODIUM CHLORIDE 0.9% 1,000 ML IV SCH ×2 (02:38→08:00)
[2020-08-13 05:11] LABS: Glucose,Whole Blood 100 mg/dL (75-99)
[2020-08-13] MEDS ORDERED: ATORVASTATIN 80 MG TAB PO ONE (07:00)
[2020-08-13] MEDS ORDERED: HEPARIN SODIUM,PORCINE 2,500 UNIT in SODIUM CHLORIDE 0.9% 250 ML IRRIGATION PRN (07:00)
[2020-08-13] MEDS ORDERED: HEPARIN SODIUM,PORCINE 10,000 UNIT in SODIUM CHLORIDE 0.9% 1,000 ML IRRIGATION PRN (07:00)
[2020-08-13] MEDS ORDERED: ASPIRIN 325 MG TAB PO ONE (07:00)
[2020-08-13 07:34] VITALS: RESP 14
[2020-08-13] MEDS: ASPIRIN 81 MG PO SCH (07:47)
[2020-08-13] MEDS: PROPRANOLOL LA 80 MG CAP.SA.24H PO SCH (07:59)
[2020-08-13] MEDS: PANTOPRAZOLE 40 MG/10 ML VIAL IVP SCH (07:59)
[2020-08-13 09:41] LABS: African American GFR (CKD) >90 (>60 ml/min/1.73 sqM); Anion Gap 4 mmol/L; Blood Urea Nitrogen 16 mg/dL (7-17); Calcium 8.2 mg/dL (8.4-10.2); Carbon Dioxide 24 mmol/L (22-30); Chloride 110 mmol/L (98-107); Glucose 91 mg/dL (74-99); Non-African American GFR(CKD) >90 (>60 ml/min/1.73 sqM); Potassium 4.3 mmol/L (3.5-5.1); Sodium 138 mmol/L (137-145)
[2020-08-13] MEDS ORDERED: VERAPAMIL 2.5 MG/ML 2 ML AMP ONE (09:55)
[2020-08-13] MEDS ORDERED: LIDOCAINE 1% INJ 10MG/ML (20 ML MDV) ONE (09:55)
[2020-08-13] MEDS ORDERED: HEPARIN SODIUM 1,000 UN/ML (10ML VL) ONE (09:56)
[2020-08-13] MEDS ORDERED: fentaNYL (PF) 50 MCG/ML 2 ML AMP ONE (09:56)
[2020-08-13] MEDS ORDERED: MIDAZOLAM 2 MG/2 ML VIAL IV ONE ×4 (10:10→10:33)
[2020-08-13] MEDS ORDERED: fentaNYL (PF) 50 MCG/ML 2 ML AMP IV ONE ×2 (10:10→10:32)
[2020-08-13] MEDS ORDERED: LIDOCAINE 1% INJ 10MG/ML (20 ML MDV) SQ ONE (10:12)
[2020-08-13] MEDS ORDERED: IV FLUID CONTINUATION 500 ML IV ONE (10:13)
[2020-08-13] MEDS ORDERED: VERAPAMIL SYRINGE (5 MG/10 ML) INTRAARTER ONE (10:22)
[2020-08-13] MEDS ORDERED: IOPAMIDOL-370 125ML BTL INJ ONE (10:29)
--- NOTE | 2020-08-13 12:27 | P.CARDCATH ---
Description of Procedure: PROCEDURES PERFORMED: Left heart catheterization, bilateral coronary angiography INDICATION: Abnormal stress test HISTORY: Patient is a pleasant 50-year-old female who has been experiencing episodes of nausea, diaphoresis, upset stomach and chest pain. She presented to the hospital and has been tachycardic and underwent stress test which was abnormal and therefore heart catheterization was recommended. CONSENT:I have discussed the risks, benefits and alternative therapies for the above-mentioned procedure and for both sedation/analgesia as well as necessary blood product administration, if indicated, as they pertain to this patient. The patient has indicated understanding and acceptance of the risks and procedures discussed. PROCEDURE: After the risks, benefits and alternatives of the above mentioned procedure explained in detail with the patient, informed consent was obtained. Patient was taken to the catheterization lab and prepped and draped in usual fashion. 1% lidocaine was used to anesthetize the right radial artery. A 6- Mexican sheath was placed in the right radial artery using modified Seldinger technique. Left coronary angiography was performed with a 5-Mexican JL 3.5 catheter and right coronary angiography was performed with a 5-Mexican JR5 catheter in various views. A 5-Mexican FR5 catheter was inserted into the left ventricle and pressure measurements were obtained. The right radial sheath was removed and a TR band was placed with hemostasis achieved. The patient tolerated the procedure well. Patient was transported back to the post catheterization holding area in stable condition. Conscious Sedation: Patient was monitored under the direct supervision of vision of myself for conscious sedation using Versed and fentanyl for a total duration of 19 minutes HEMODYNAMICS: Ao: 124/67 LV: 132/2, LVEDP 7 SELECTIVE CORONARY ARTERIOGRAPHY: LEFT MAIN: The left main is a large caliber vessel which bifurcates into the LAD and circumflex. There is no significant stenosis. LEFT ANTERIOR DESCENDING CORONARY ARTERY: LAD is a large caliber vessel which wraps around to the apex. There is no significant stenosis. LEFT CIRCUMFLEX CORONARY ARTERY: Left circumflex is a moderate caliber vessel without significant stenosis. RIGHT CORONARY ARTERY: The right coronary artery is a large caliber vessel which gives off a PDA and PLV branch and is the dominant vessel. There is no significant stenosis. FINAL IMPRESSION: 1. Normal coronary arteries as described above. 2. Low normal left sided filling pressures PLAN: 1. Aggressive risk factor modification per most recent ACC/AHA guidelines. 2. Follow-up in the office in 1-2 weeks.
--- NOTE | 2020-08-13 14:55 | DS ---
DISCHARGE SUMMARY DATE OF SERVICE: 08/13/2020 FINAL DIAGNOSIS: 1. Chest pain, possibly musculoskeletal pain, negative cardiac catheterization. 2. Normal stress test, status post cardiac catheterization showing no significant coronary disease. 3. Palpitations for evaluation for possible sinus tachycardia, rule out cardiac arrhythmia. 4. Gastroesophageal reflux disease. 5. Possible acute gastroenteritis. 6. Increased WBC. 7. History of migraines. 8. History of cholecystectomy. 9. History of degenerative joint disease and left knee scope. 10.FULL CODE. DISCHARGE DISPOSITION: The patient will be discharged in stable condition with guarded prognosis. HISTORY OF PRESENT ILLNESS: This 50-year-old woman with a past medical history medical problems being followed by Dr. Phylicia Stewart in the outpatient was admitted with chest pain and as a GI symptoms. Myocardial infarction ruled out. Patient had cardiac stress test which was borderline abnormal. Cardiac catheter showed no active coronary disease. Recommend outpatient followup. PHYSICAL EXAMINATION: On exam, vitals stable. Cardiovascular S1, S2. Abdomen soft. Nervous system: The patient also had some symptoms of palpitation. Recommend outpatient Holter monitoring and further evaluation by Cardiology. DISCHARGE INSTRUCTIONS: Cardiac diet. Followup Dr. Phylicia Stewart in 2-3 days. Follow up with Cardiology as recommended. MEDICATIONS: 1. Vitamin D2 1250 mcg p.o. Wednesday. 2. Aspirin, acetaminophen as before. 3. Fioricet as before. 4. Propranolol 60 mg p.o. daily. 5. Protonix 40 mg p.o. daily. MMODL / IJN: [id number] /
[2020-08-13 14:58] VITALS: BP 100/69; PULSE 80; TEMP 98.1
[2020-08-13] MEDS ORDERED: PANTOPRAZOLE 40 MG TABLET PO SCH (21:00)
== END 2020-08-13 17:14 | disposition home or self-care (01) | DRG 287 ==
LOC: EC 22:28 → 6NMEDSUR 08-11 01:47 → OBSVTOIN 08-12 19:20
PROVIDERS: ADMIT Hospitalist; ATTEND Hospitalist
PROC: B2111ZZ Fluoroscopy of Multiple Coronary Arteries using Low Osmolar Contrast (ICD-10-PCS; principal; 2020-08-13 07:30)
PROC: 4A023N7 Measurement of Cardiac Sampling and Pressure, Left Heart, Percutaneous Approach (ICD-10-PCS; principal; 2020-08-13 07:30)
DX: R07.89 Other chest pain (principal); E87.6 Hypokalemia; Z20.822 Contact with and (suspected) exposure to COVID-19; I10 Essential (primary) hypertension; K52.9 Noninfective gastroenteritis and colitis, unspecified; R00.0 Tachycardia, unspecified; G43.909 Migraine, unspecified, not intractable, without status migrainosus; K21.9 Gastro-esophageal reflux disease without esophagitis; I25.2 Old myocardial infarction; M19.90 Unspecified osteoarthritis, unspecified site; Z79.82 Long term (current) use of aspirin; Z79.899 Other long term (current) drug therapy; Z90.49 Acquired absence of other specified parts of digestive tract; Z87.19 Personal history of other diseases of the digestive system; Z98.51 Tubal ligation status; Z90.11 Acquired absence of right breast and nipple; Z86.018 Personal history of other benign neoplasm; Z98.890 Other specified postprocedural states; Z88.6 Allergy status to analgesic agent; Z88.5 Allergy status to narcotic agent; Z82.49 Family history of ischemic heart disease and other diseases of the circulatory system; Z82.5 Family history of asthma and other chronic lower respiratory diseases; Z83.3 Family history of diabetes mellitus
CPT/HCPCS: 36415; 71046; 71275; 78452; 80048; 80053; 80061; 81001; 81025; 83690; 83735; 84443; 84484; 85025; 85379; 87635; 93005; 93017; 93306; 93458; 96374; 96375; 99285

== ENCOUNTER → 2020-11-25 | Outpatient (CLI) | payer MEDICAID ==
--- NOTE | 2020-11-25 13:48 | MM ---
Reason for exam: screening (asymptomatic). Last mammogram was performed 1 year and 3 months ago. History: Patient is postmenopausal. Benign left mammotome panel of the left breast, June 16, 2013. Benign excisional biopsy of the right breast, 1999. Took hormonal contraceptives for 1 year. Physical Findings: A clinical breast exam by your physician is recommended on an annual basis and results should be correlated with mammographic findings. MG 3D Screening Mammo W/Cad Bilateral CC and MLO view(s) were taken. Prior study comparison: August 15, 2019, bilateral MG 3d screening mammo w/cad. January 18, 2018, bilateral MG screening mammo w CAD. January 08, 2017, bilateral MG 3d screening mammo w/cad. The breast tissue is heterogeneously dense. This may lower the sensitivity of mammography. Previous mammotome biopsy in the left breast. There is chronic nodularity in the right axilla. There is no discrete abnormality. ASSESSMENT: Benign, BI-RAD 2 RECOMMENDATION: Routine screening mammogram of both breasts in 1 year.
== END | disposition home or self-care (01) ==
LOC: RADMAMWWP 08:11
PROVIDERS: ATTEND Family Medicine
DX: Z12.31 Encounter for screening mammogram for malignant neoplasm of breast (principal)
CPT/HCPCS: 77063; 77067

== ENCOUNTER → 2021-04-26 | Outpatient (CLI) | payer MEDICAID ==
--- NOTE | 2021-04-26 12:26 | XR ---
EXAMINATION TYPE: XR lumbosacral spine min 4V DATE OF EXAM: 04/26/2021 CLINICAL HISTORY: pain COMPARISON: NONE TECHNIQUE: Frontal, lateral, and oblique images of the lumbar spine are obtained. FINDINGS: There are 5 lumbar type vertebral bodies identified. The lumbar spine shows satisfactory alignment without evidence of acute fracture or dislocation. Vertebral body heights are within normal limits. Mild multilevel degenerative disc disease. The overlying soft tissue appears unremarkable. IMPRESSION: No acute fracture or dislocation is seen in the lumbar spine.ICD 10 NO FRACTURE, INITIAL EVALUATION
--- NOTE | 2021-04-26 12:32 | XR ---
EXAMINATION TYPE: XR Hip RT and AP Pelvis DATE OF EXAM: 04/26/2021 CLINICAL HISTORY: pain TECHNIQUE: AP and frogleg views of the right hip are obtained. The pelvis is also submitted. COMPARISON: None. FINDINGS: There is no acute fracture/dislocation evident. The joint space appears within normal li mits. The overlying soft tissue appears unremarkable. IMPRESSION: 1. There is no acute fracture or dislocation. ICD 10 NO FRACTURE, INITIAL EVALUATION
== END | disposition home or self-care (01) ==
LOC: RADMRIMAIN 11:45
PROVIDERS: ATTEND Nurse Practitioner Family
DX: M25.551 Pain in right hip (principal); M54.41 Lumbago with sciatica, right side
CPT/HCPCS: 72110; 73502

== ENCOUNTER → 2022-02-25 | Outpatient (CLI) | payer OTHER ==
--- NOTE | 2022-02-26 08:43 | MM ---
Reason for Exam: Screening (asymptomatic). Last mammogram was performed 1 year(s) and 3 month(s) ago. Patient History: Menarche at age 10. First Full-Term at age 18. Postmenopausal. Patient used Hormonal Contraceptives for 1 year. 1999, Benign Excisional Biopsy on the right side. 06/16/2013, Benign Core Biopsy on the left side. Risk Values: Merlene 5 year model risk: 1.5%. NCI Lifetime model risk: 11.3%. Prior Study Comparison: 01/18/2018 Bilateral Screening Mammogram, [facility]. 08/15/2019 Bilateral Screening Mammogram, [facility]. 11/25/2020 Bilateral Screening Mammogram, [facility]. Tissue Density: The breast tissue is heterogeneously dense. This may lower the sensitivity of mammography. Findings: Analyzed By CAD. There is no suspicious group of microcalcifications or new suspicious mass in either breast. Previous mammotome biopsy of the left breast. Chronic nodularity within the right axilla. No significant change from prior exams. Overall Assessment: Benign, BI-RAD 2 Management: Screening Mammogram of both breasts in 1 year. A clinical breast exam by your physician is recommended on an annual basis and results should be correlated with mammographic findings. Electronically signed and approved by: Gilberto Hurtado D.O.
== END | disposition home or self-care (01) ==
LOC: RADMAMWWP 07:37
PROVIDERS: ATTEND Family Medicine
DX: Z12.31 Encounter for screening mammogram for malignant neoplasm of breast (principal); Z78.0 Asymptomatic menopausal state
CPT/HCPCS: 77063; 77067